=== PATIENT | female | born 1965 | race Caucasian/White ===

== ENCOUNTER → 2017-03-31 | Outpatient (CLI) | payer OTHER | LOC: FIMAGING 09:19 | PROVIDERS: ATTEND Nurse Practitioner Women's Health | DX: Z12.31 Encounter for screening mammogram for malignant neoplasm of breast (principal) ==

== ENCOUNTER → 2018-03-01 | Outpatient (CLI) | payer OTHER | LOC: CIMAGING 13:44 | PROVIDERS: ATTEND Family Medicine Sports Medicine | DX: S32.501A Unspecified fracture of right pubis, initial encounter for closed fracture (principal); S32.119A Unspecified Zone I fracture of sacrum, initial encounter for closed fracture; S70.01XA Contusion of right hip, initial encounter; S42.101A Fracture of unspecified part of scapula, right shoulder, initial encounter for closed fracture | CPT/HCPCS: 73200-PO; 73700-PO ==

== ENCOUNTER → 2018-05-12 | Outpatient (CLI) | payer OTHER | LOC: FIMAGING 12:38 | PROVIDERS: ATTEND Nurse Practitioner | DX: Z13.820 Encounter for screening for osteoporosis (principal); M81.0 Age-related osteoporosis without current pathological fracture; Z78.0 Asymptomatic menopausal state ==

== ENCOUNTER → 2018-06-08 | Outpatient (CLI) | payer OTHER | LOC: FIMAGING 12:59 | PROVIDERS: ATTEND Nurse Practitioner Women's Health | DX: Z12.31 Encounter for screening mammogram for malignant neoplasm of breast (principal); R92.2 Inconclusive mammogram ==

== ENCOUNTER → 2018-06-18 | Outpatient (CLI) | payer OTHER | LOC: FIMAGING 10:11 | PROVIDERS: ATTEND Nurse Practitioner Women's Health | DX: R92.8 Other abnormal and inconclusive findings on diagnostic imaging of breast (principal) ==